=== PATIENT | female | born 2000 ===

== ENCOUNTER 2023-02-22 15:55 | Emergency (ER) | payer OTHER ==
[2023-02-22 16:08] VITALS: BP 122/73; PULSE 79; RESP 18; TEMP 98.8
--- NOTE | 2023-02-22 16:46 | ED ---
Chest Pain HPI - General Chief Complaint: Chest Pain Stated Complaint: chest&lung pain Time Seen by Provider: 02/22/23 16:47 Source: patient Mode of arrival: ambulatory Limitations: no limitations - History of Present Illness Initial Comments: 23-year-old female presenting to the ED with a chief complaint of chest pain. Patient states for the past 8 months has had left-sided chest pain on most days. Patient states pain is often exacerbated or provoked by movement or deep breath. No shortness of breath. - Related Data Allergies Allergy/AdvReac Type Severity Reaction Status Date / Time No Known Allergies Allergy Verified 02/22/23 16:05 Review of Systems ROS Statement: Those systems with pertinent positive or pertinent negative responses have been documented in the HPI. ROS Other: All systems not noted in ROS Statement are negative. Past Medical History Past Medical History: No Reported History History of Any Multi-Drug Resistant Organisms: None Reported Past Surgical History: No Surgical Hx Reported Past Psychological History: Anxiety Smoking Status: Current every day smoker Past Alcohol Use History: None Reported Past Drug Use History: Heroin, Methamphetamine General Exam Limitations: no limitations General appearance: alert, in no apparent distress Neck exam: Present: normal inspection Extremities exam: Present: normal inspection Back exam: Present: normal inspection Course Vital Signs 02/22/23 16:02 Temperature 98.8 F Pulse Rate 79 Respiratory 18 Rate Blood Pressure 122/73 O2 Sat by Pulse 99 Oximetry Chest Pain MDM - MDM Quicknote portion performed. Signed Maxwell Mcpherson PA-C Note portion was performed however patient left prior to formal evaluation. Disposition Clinical Impression: Chest pain Disposition: LEFT AGAINST MEDICAL ADVICE Referrals: None,Stated [Primary Care Provider] - 1-2 days
--- NOTE | 2023-02-22 17:19 | XR ---
EXAMINATION TYPE: XR chest 2V DATE OF EXAM: 02/22/2023 COMPARISON: None HISTORY: 23-year-old female with chest pain TECHNIQUE: PA and lateral views FINDINGS: The cardiomediastinal silhouette, aorta, and pulmonary vasculature are within normal limits. Lungs an d pleural spaces are clear. IMPRESSION: No acute cardiopulmonary process.
== END 2023-02-22 19:43 | disposition left against medical advice (07) ==
LOC: EC 15:55
DX: R07.89 Other chest pain (principal); F17.200 Nicotine dependence, unspecified, uncomplicated; F15.90 Other stimulant use, unspecified, uncomplicated; Z86.59 Personal history of other mental and behavioral disorders; Z53.29 Procedure and treatment not carried out because of patient's decision for other reasons
CPT/HCPCS: 71046; 99284